=== PATIENT | female | born 1965 | race Caucasian/White ===

== ENCOUNTER 2018-07-13 13:37 | Inpatient (IN) | payer MEDICAID ==
[~2018-07-13] VITALS: Ht 157.5 cm; Wt 83.5 kg
[2018-07-13 13:45] VITALS: BP 148/89
--- NOTE | 2018-07-13 13:51 | NUR ---
AFTER TAKING EKG PER DR GAFFNEY, PT AMBULATES BACK TO THE LOBBY
--- NOTE | 2018-07-13 13:52 | NUR ---
53Y/F BIB DAUGHTER WITH C/O SOB, CHEST PALPITATION ON AMBULATION X 3 EPISODES, LAST ONE WAS 2 DAYS AGO SEND HOME FROM WORK. PT STATES SHE COULD WALK UP THE STAIRS YESTERDAY WITHOUT SOB AND HAD LEFT SIDE ARM WEAKNESS. PT IS AAOX4, VSS AT THIS TIME, BED DOWN LOCKED, BEDRAIL UP X 1, ER MD AWARE AND NOTIFIED OF PT STATUS. HX; DENIES RX; DENIES
--- NOTE | 2018-07-13 14:14 | NUR ---
pt ambulates w/ steady gait to bed 5 at this time
[2018-07-13 14:55] LABS: BASOPHILS % (AUTO) 0.4 % (0.0-2.0); EOSINOPHILS # (AUTO) 0.1 K/uL (0-0.4); EOSINOPHILS % (AUTO) 1.5 % (0.0-4.0); LYMPHOCYTES # (AUTO) 1.1 K/uL (2.5-16.5); LYMPHOCYTES % (AUTO) 27.4 % (20.5-51.1); MEAN CORPUSCULAR HEMOGLOBIN 24 pg (27-31); MEAN CORPUSCULAR HGB CONC 30 g/dL (33-37); MEAN CORPUSCULAR VOLUME 78.4 fL (80-94); MONOCYTES # (AUTO) 0.4 K/uL (0.8-1.0); MONOCYTES % (AUTO) 9.3 % (1.7-9.3); NEUTROPHILS # (AUTO) 2.5 K/uL (1.8-7.7); NEUTROPHILS % (AUTO) 61.4 % (42.2-75.2); PLATELET COUNT (AUTO) 197 K/uL (140-450); RED BLOOD CELL COUNT(AUTO) 2.62 MIL/uL (4.20-5.40); RED CELL DISTRIBUTION WIDTH 17.5 % (11.6-13.7); WHITE BLOOD COUNT (AUTO) 4.1 K/uL (4.8-10.8)
[2018-07-13 15:08] LABS: ANION GAP 11.6 (8-16); CARBON DIOXIDE 26.1 mmol/L (21-32); CREATININE 0.6 mg/dL (0.6-1.3); POTASSIUM 3.7 mmol/L (3.5-5.1)
[2018-07-13 15:14] LABS: TOTAL BILIRUBIN 0.2 mg/dL (0.0-1.0)
[2018-07-13 15:24] LABS: HEMOGLOBIN 6.2 g/dL (12.0-16.0)
[2018-07-13] MEDS ORDERED: NACL 0.9% 1,000 ML IV SCH (15:25)
--- NOTE | 2018-07-13 15:25 | NUR ---
CRITICAL LAB RESULT H/H 6.2/20.5 OBTAINED, DR. GAFFNEY MAKE AWARE.
[2018-07-13 15:27] LABS: HEMATOCRIT 20.5 % (36-48)
[2018-07-13 15:33] LABS: PROTHROMBIN TIME 9.7 secs (10.8-13.4)
[2018-07-13] MEDS ORDERED: MORPHINE SULFATE 2 MG/ML SYR IVP PRN (16:00)
[2018-07-13] MEDS ORDERED: ACETAMINOPHEN 325 MG TAB PO PRN (16:00)
[2018-07-13] MEDS ORDERED: HYDROcodone/APAP 5/325 MG 1 TAB TAB PO PRN (16:00)
[2018-07-13] MEDS ORDERED: ONDANSETRON 4 MG/2 ML VIAL IM/IVP PRN (16:00)
[2018-07-13] MEDS ORDERED: DOCUSATE SODIUM 100 MG GELCAP PO PRN (16:00)
[2018-07-13] MEDS ORDERED: ZOLPIDEM 5 MG TAB PO PRN (16:00)
--- NOTE | 2018-07-13 16:13 | NUR ---
NOT ABLE TO GET IV IN PATIENT AT THIS TIME
[2018-07-13 16:57] LABS: PHOSPHORUS 3.3 mg/dL (2.5-4.9); THYROID STIMULATING HORMONE 1.83 uIU/mL (0.34-3.74)
[2018-07-13] MEDS ORDERED: KETOROLAC 60 MG/2 ML VIAL IM ONE (17:10)
[2018-07-13] MEDS ORDERED: LORazepam 1 MG TAB PO ONE (17:10)
--- NOTE | 2018-07-13 17:30 | NUR ---
CONCENT OBTAINED FROM PATIENT FOR CENTRAL LINE INSERTION.
--- NOTE | 2018-07-13 17:50 | NUR ---
RESIDENT AT BEDSIDE DOING CENTRAL LINE INSERTION.
--- NOTE | 2018-07-13 18:30 | NUR ---
QUNTON CATHETER PLACED ON LEFT INTERJAGULAR VEIN, ONE OF LUMEN DOESN'T WORK PER RESIDENT.
[2018-07-13 18:51] LABS: APPEARANCE,URINE HAZY (CLEAR); BILIRUBIN,URINE NEGATIVE (NEGATIVE); BLOOD, URINE NEGATIVE (NEGATIVE); COLOR,URINE YELLOW (YELLOW); LEUKOCYTE ESTERASE ,URINE 1+ (NEGATIVE); NITRITE, URINE NEGATIVE (NEGATIVE); UGLUCOSE NEGATIVE (NEGATIVE)
[2018-07-13 18:55] LABS: BARBITURATE, URINE NEG. ng/ml (NEG <=200); BENZODIAZEPINE, URINE NEG. ng/mL (NEG <=200); CANNABINOID, URINE NEG. ng/mL (NEG <=50); COCAINE, URINE NEG. ng/mL (NEG <=300); OPIATE, URINE NEG. ng/mL (NEG <=2000); PHENCYCLIDINE SCREEN,URINE NEG. ng/mL (NEG <=25)
[2018-07-13 18:59] LABS: RBC,URINE 0-5 (RARE) /HPF (0-5); WBC,URINE 6-15 (FEW) /HPF (0-5)
[2018-07-13] MEDS ORDERED: HYDROmorphone 1 MG/ML AMP IVP SCH (19:00)
[2018-07-13] MEDS ORDERED: LORazepam 2 MG/ML VIAL IVP SCH (19:00)
--- NOTE | 2018-07-13 19:05 | NUR ---
PT ARRIVED ON UNIT VIA GURNEY WITH ER NURSE. PT ABLE TO AMBULATE FROM GURNEY INTO BED. PT ACCOMPANIED BY FAMILY. PT IS AA0X4. PT IS ON RA WITH RESPIRATIONS EVEN AND UNLABORED. L IJ TRIPLE LUMEN PLACED IN ER. DRESSING IS DRY INTACT AND LABELED. PT SKIN IS INTACT. PT HAS NO C/O PAIN AT THIS TIME. MRSA SWAB COLLECTED. VITALS TAKEN. FALL RISK PROTOCOL INITIATED. ORIENTED PT TO ROOM AND USE OF CALL LIGHT. BOARD UPDATED. CALL LIGHT IS WITHIN REACH. BED IS LOCKED, LOW POSITION WITH SIDE RAILS UP X2. WILL CONTINUE TO MONITOR.
--- NOTE | 2018-07-13 19:05 | NUR ---
Patient will be admitted to care of DR. CHIANG. Admited to TELE. Will go to room 121A. Belongings list completed. Report to MEY SHELDON AT BEDSIDE, PT IS IN STABLE CONDITION AT THIS TIME.
[2018-07-13 20:00] VITALS: BP 129/71
--- NOTE | 2018-07-13 20:12 | NUR ---
HEPARIN, ATIVAN AND DILAUDID NON ADMINISTERED D/T CENTRAL LINE ALREADY PLACED AND FLUSHED PRIOR TO PT ARRIVING ON UNIT. DR. MADDIE FINNEGAN.
--- NOTE | 2018-07-13 20:13 | NUR ---
PER DR PERKINS CANCEL HEPARIN LOCK FLUSH, ATIVAN IVP AND DILAUDID IVP PRIOR TO CENTRAL LINE PLACEMENT ORDER, PT ALREADY HAD CENTRAL LINE IN PLACE, PT'S RN PITO IS AWARE.
[2018-07-13] MEDS ORDERED: SODIUM FERRIC GLUCONATE 125 MG in NACL 0.9% 100 ML IV SCH ×4 (21:00)
[2018-07-13] MEDS ORDERED: cefTRIAXone 1,000 MG VIAL ONE (21:25)
[2018-07-13] MEDS: NACL 0.9% 1,000 ML IV SCH (21:26)
--- NOTE | 2018-07-13 21:29 | NUR ---
ORDERED IV ANTIBIOTIC STARTED. CONSENT FOR BLOOD TRANSFUSION OBTAINED. PT IS RESTING COMFORTABLY IN BED. NO S/SX OF DISTRESS. WILL CONTINUE TO MONITOR.
--- NOTE | 2018-07-13 22:12 | NUR ---
SCHEDULED FERRLECIT STARTED. PT IS SLEEPING COMFORTABLY IN BED. NO S/SX OF DISTRESS. WILL CONTINUE TO MONITOR.
[2018-07-13] MEDS ORDERED: INFLUENZA VIRUS VACCINE QUAD 0.5 ML SYR IMVAC PRN (23:15)
[2018-07-13 23:35] VITALS: BP 120/85
--- NOTE | 2018-07-13 23:50 | NUR ---
FIRST UNIT OF PRBC STARTED. PT TOLERATING WELL. NO S/SX OF DISTRESS. WILL CONTINUE TO MONITOR.
[2018-07-14] VITALS (9 sets, daily range): BP systolic 114–137; BP diastolic 60–94
--- NOTE | 2018-07-14 00:45 | NUR ---
PRBC STILL INFUSING. PT IS ASLEEP IN BED WITH NO SIGNS OR SYMPTOMS OF DISTRESS. WILL CONTINUE TO MONITOR.
--- NOTE | 2018-07-14 02:30 | NUR ---
PRBC UNIT FINISHED INFUSING. PT IS ALEEPING IN BED. VS STABLE. NO S/SX OF DISTRESS. WILL CONTINUE TO MONITOR PT.
--- NOTE | 2018-07-14 04:00 | NUR ---
PT VS WITHIN NORMAL LIMITS. ASSISTED PT UP TO BATHROOM AND BACK INTO BED. PT TOLERATED WELL. NO SIGNS OR SYMPTOMS OF DISTRESS. WILL CONTINUE TO MONITOR.
--- NOTE | 2018-07-14 07:20 | NUR ---
ENDORSED PT TO DAY SHIFT NURSE FOR CONTINUITY OF CARE. PT IN STABLE CONDITION.
--- NOTE | 2018-07-14 07:25 | NUR ---
RECEIVED PT FROM DRESS CUTTER NURSEPITO, PT IS ASLEEP LYING ON THE BED WITH SIDE RAILS UP AND CALL LIGHT WITHIN REACH, PT HAS A TRIPLE LUMEN IJ ON THE LEFT UPPER ARM WITH NS AT 60ML/HR, INFUSING HOOKED ON THE BLUE PORT, RESPIRATION EVEN AND NO SIGN OF DISTRESS NOTED. WILL CONTINUE TO MONITOR PT.
--- NOTE | 2018-07-14 08:00 | NUR ---
PT IS AWAKE AND VITAL SIGNS WAS TAKEN AND IS WITHIN NORMAL LIMITS, DR. REYNOSO CAME TO PT'S ROOM AND SPOKE TO PT REGARDING POC, PT VERBALIZED UNDERSTANDING. WILL MONITOR PT.
[2018-07-14 08:01] LABS: BASOPHILS % (AUTO) 1.1 % (0.0-2.0); EOSINOPHILS # (AUTO) 0.1 K/uL (0-0.4); EOSINOPHILS % (AUTO) 1.2 % (0.0-4.0); HEMATOCRIT 23.3 % (36-48); HEMOGLOBIN 7.3 g/dL (12.0-16.0); LYMPHOCYTES # (AUTO) 1.1 K/uL (2.5-16.5); LYMPHOCYTES % (AUTO) 23.9 % (20.5-51.1); MEAN CORPUSCULAR HEMOGLOBIN 25 pg (27-31); MEAN CORPUSCULAR HGB CONC 31 g/dL (33-37); MEAN CORPUSCULAR VOLUME 79.6 fL (80-94); MONOCYTES # (AUTO) 0.3 K/uL (0.8-1.0); MONOCYTES % (AUTO) 6.9 % (1.7-9.3); NEUTROPHILS # (AUTO) 3.1 K/uL (1.8-7.7); NEUTROPHILS % (AUTO) 66.9 % (42.2-75.2); PLATELET COUNT (AUTO) 185 K/uL (140-450); RED BLOOD CELL COUNT(AUTO) 2.92 MIL/uL (4.20-5.40); RED CELL DISTRIBUTION WIDTH 17.3 % (11.6-13.7); WHITE BLOOD COUNT (AUTO) 4.6 K/uL (4.8-10.8)
[2018-07-14 08:22] LABS: ANION GAP 15.1 (8-16); CREATININE 0.6 mg/dL (0.6-1.3); POTASSIUM 4.1 mmol/L (3.5-5.1)
[2018-07-14 08:26] LABS: PHOSPHORUS 3.4 mg/dL (2.5-4.9)
[2018-07-14] MEDS: NACL 0.9% 1,000 ML IV SCH (08:38)
--- NOTE | 2018-07-14 09:11 | NUR ---
PATIENT HAS BEEN SCREENED AND CATEGORIZED MODERATE NUTRITION RISK. PATIENT WILL BE SEEN WITHIN 3-5 DAYS OF ADMISSION. 07/16/18 07/18/[address]
[2018-07-14 09:50] LABS: CHOL/HDL RATIO 2.3 (1-4.5)
--- NOTE | 2018-07-14 12:15 | NUR ---
PT IS AWAKE AND HAVING HER LUNCH, V/S TAKEN AND IS WITHIN NORMAL LIMIT. PT VERBALIZED NOT HAVING A BOWEL MOVEMENT TODAY. WILL MONITOR PT.
--- NOTE | 2018-07-14 16:45 | NUR ---
PT IS AWAKE WITH SON ON THE BEDSIDE, V/S TAKEN AND IS WITHIN NORMAL LIMIT. PT DENIES PAIN AND NO SIGN OF DISTRESS NOTED.
--- NOTE | 2018-07-14 19:36 | NUR ---
ENDORSED PT TO WAREHOUSE SPECIALIST NURSE, YOVANY FOR CONTINUITY OF CARE, PT TIS STABLE AT THIS TIME.
--- NOTE | 2018-07-14 19:37 | NUR ---
RECEIVED REPORT FROM DAY SHIFT RN MACIEL FOR CONTINUITY OF CARE. PT IS A/OX4, ON ROOM AIR. PT AMBULATES WITH STEADY GAIT, AND SKIN IS PINK/WARM/DRY AND INTACT. PT IS ABLE TO MAKE NEEDS KNOWN, AND ABLE TO FOLLOW COMMANDS. LUNGS SOUNDS CLEAR, HR EVEN AND REGULAR. PT HAS A TRIPLE LUMEN LEFT IJ, ASYMPTOMATIC AND INTACT. PT DENIES ANY PAIN AT THIS TIME. VITAL SIGNS STABLE. NO SIGNS OF DISTRESS NOTED. PT POSITIONED FOR COMFORT. BED RAILS UP X2, BED IN LOWEST POSITION. CALL LIGHT WITHIN REACH, WILL CONTINUE TO MONITOR.
--- NOTE | 2018-07-14 21:05 | NUR ---
ADMINISTERED SCHEDULED MEDICATION, PT VERBALIZED UNDERSTANDING OF MED AND IS TOLERATING ADMINISTRATION WELL.
[2018-07-15] VITALS: BP 130/90
--- NOTE | 2018-07-15 | NUR ---
VITAL SIGNS STABLE. NO SIGNS OF DISTRESS NOTED. PT POSITIONED FOR COMFORT. BED RAILS UP X2, BED IN LOWEST POSITION. CALL LIGHT WITHIN REACH, WILL CONTINUE TO MONITOR.
[2018-07-15] MEDS: NACL 0.9% 1,000 ML IV SCH ×2 (01:18→17:58)
--- NOTE | 2018-07-15 03:00 | NUR ---
PT REPORTED CENTRAL LINE/DONNA CATH WAS LEAKING. CHECKED DONNA CATH AND DRESSING HAD COME OFF AND IT LOOKED LIKE SOME OF THE TUBING/CATHETER HAD COME OUT. I TOLD DR PERKINS ABOUT THIS AND HE LOOKED AT IT. HE SAID TO PUT NEW DRESSING ON BUT DON'T TRY TO PUSH CATHETER IN. USED STERILE TECHNIQUE TO CLEAN AND DRESS DONNA CATH, THEN CHECKED IF BLOOD COULD BE DRAWN, AND IT COULDN'T. STOPPED IV FLUIDS.
[2018-07-15 04:00] VITALS: BP 126/83
--- NOTE | 2018-07-15 06:22 | NUR ---
PT STABLE, NO SIGNS OF DISTRESS NOTED.
[2018-07-15 06:43] LABS: ANION GAP 13.3 (8-16); CARBON DIOXIDE 23.7 mmol/L (21-32); CREATININE 0.6 mg/dL (0.6-1.3)
[2018-07-15 07:00] LABS: BASOPHILS % (AUTO) 0.4 % (0.0-2.0); EOSINOPHILS # (AUTO) 0.1 K/uL (0-0.4); EOSINOPHILS % (AUTO) 1.9 % (0.0-4.0); HEMATOCRIT 25.1 % (36-48); HEMOGLOBIN 7.7 g/dL (12.0-16.0); LYMPHOCYTES # (AUTO) 1.5 K/uL (2.5-16.5); LYMPHOCYTES % (AUTO) 27.6 % (20.5-51.1); MEAN CORPUSCULAR HEMOGLOBIN 24 pg (27-31); MEAN CORPUSCULAR HGB CONC 31 g/dL (33-37); MONOCYTES # (AUTO) 0.4 K/uL (0.8-1.0); MONOCYTES % (AUTO) 7.7 % (1.7-9.3); NEUTROPHILS # (AUTO) 3.4 K/uL (1.8-7.7); NEUTROPHILS % (AUTO) 62.4 % (42.2-75.2); PLATELET COUNT (AUTO) 210 K/uL (140-450); RED BLOOD CELL COUNT(AUTO) 3.17 MIL/uL (4.20-5.40); RED CELL DISTRIBUTION WIDTH 17.5 % (11.6-13.7); WHITE BLOOD COUNT (AUTO) 5.4 K/uL (4.8-10.8)
--- NOTE | 2018-07-15 07:30 | NUR ---
PT REPORT OBTAINED FORM NIGHT NURSE. PT IS AWAKE AND ALERT X 4, NO S/S OF DISTRESS, PAIN, OR SOB. A DONNA CATHETER IS NOTED PARTIALLY PULLED OUT FROM PT'S L SIDE NECK, REINFORCED WITH A CLEAR DRESSING, THE CATHETER GOT PARTIALLY PULLED OUT LAST NIGHT. THE PT DOES NOT HAVE ANY OTHER PERIPHERAL IV SITES. SKIN IS INTACT. PT ON ROOM AIR. FALL PRECAUTIONS IN PLACE. CALL LIGHT WITHIN REACH. WILL CONTINUE TO MONITOR.
--- NOTE | 2018-07-15 07:34 | NUR ---
ENDORSED PT TO DAY SHIFT MEY PILLAI FOR CONTINUITY OF CARE. PT IN STABLE CONDITION.
[2018-07-15 08:00] VITALS: BP 131/86
[2018-07-15] MEDS ORDERED: DOCUSATE SODIUM 100 MG GELCAP PO SCH (08:00)
[2018-07-15] MEDS ORDERED: FERROUS SULFATE 325 MG TABEC PO SCH (08:00)
[2018-07-15] MEDS: ASCORBIC ACID 500 MG TAB PO SCH (09:01)
[2018-07-15 12:00] VITALS: BP 148/86
--- NOTE | 2018-07-15 12:00 | NUR ---
L IJ CATHETER DC'D PER MD ORDER.
--- NOTE | 2018-07-15 12:38 | NUR ---
FOUR ATTEMPTS TO START A PERIPHERAL IV BY TWO NURSES UNSUCCESSFUL. WILL CALL ER TO SEE IF THEY CAN COME TO TRY TO INSERT IV. Addendum: 07/15/18 at 1315 by Pamela Vazquez RN DR MOE AWARE THAT IV COULD NOT BE INSERTED. Addendum: 07/15/18 at 1429 by Pamela Vazquez RN PER DR MOE, NO NEED TO INSERT NEW IV
[2018-07-15 16:00] VITALS: BP 127/89
--- NOTE | 2018-07-15 18:00 | NUR ---
STOOL OBTAINED AND TAKEN TO LAB FOR HEMOCCULT TEST.
[2018-07-15] MEDS: FERROUS SULFATE 325 MG TABEC PO SCH (18:11)
--- NOTE | 2018-07-15 19:30 | NUR ---
PT REPORT GIVEN AT BEDSIDE TO NIGHT NURSE. PT ENDORSED IN STABLE CONDITION.
--- NOTE | 2018-07-15 19:35 | NUR ---
RECEIVED REPORT FROM DAY SHIFT RN IVON FOR CONTINUITY OF CARE. PT IS A/OX4, ON ROOM AIR. PT AMBULATES WITH STEADY GAIT, AND SKIN IS PINK/WARM/DRY AND INTACT. PT IS ABLE TO MAKE NEEDS KNOWN, AND ABLE TO FOLLOW COMMANDS. LUNGS SOUNDS CLEAR, HR EVEN AND REGULAR. NO IV ACCESS. PT DENIES ANY PAIN AT THIS TIME. VITAL SIGNS STABLE. NO SIGNS OF DISTRESS NOTED. PT POSITIONED FOR COMFORT. BED RAILS UP X2, BED IN LOWEST POSITION. CALL LIGHT WITHIN REACH, WILL CONTINUE TO MONITOR.
[2018-07-15 20:00] VITALS: BP 134/61
--- NOTE | 2018-07-15 22:06 | NUR ---
PT COMPLAINED ABOUT NEIGHBOR'S LIGHT BEING TOO BRIGHT IN THE BED NEXT TO HERS. TALKED TO PT NEXT TO HER AND SHE AGREED TO TURN OFF THE OVERHEAD LIGHT AND TURN ON THE MIRROR LIGHT BY THE BATHROOM.
[2018-07-16] VITALS: BP 107/72
--- NOTE | 2018-07-16 03:00 | NUR ---
PT RESTING, NO SIGNS OF DISTRESS NOTED. WILL CONTINUE TO MONITOR.
[2018-07-16 04:00] VITALS: BP 126/73
--- NOTE | 2018-07-16 06:16 | NUR ---
NO SIGNS OF DISTRESS NOTED. PT POSITIONED FOR COMFORT. BED RAILS UP X2, BED IN LOWEST POSITION. CALL LIGHT WITHIN REACH, WILL CONTINUE TO MONITOR.
--- NOTE | 2018-07-16 07:30 | NUR ---
ENDORSED PT TO DAY SHIFT MEY ST FOR CONTINUITY OF CARE. PT IN STABLE CONDITION.
--- NOTE | 2018-07-16 07:35 | NUR ---
RECEIVED PT FROM SAND CUTTER OPERATOR NURSEYOVANY, PT IS ASLEEP LYING ON THE BED WITH SIDE RAILS UP AND CALL LIGHT WITHIN REACH, RESPIRATION EVEN AND NO SIGN OF DISTRESS NOTED. WILL CONTINUE TO MONITOR PT.
[2018-07-16 08:00] VITALS: BP 148/89
[2018-07-16] MEDS: FERROUS SULFATE 325 MG TABEC PO SCH (08:16)
[2018-07-16] MEDS: ASCORBIC ACID 500 MG TAB PO SCH (08:18)
--- NOTE | 2018-07-16 08:24 | NUR ---
PT IS AWAKE AND ALERT AND JUST FINISHED HER BREAKFAST, ORAL MEDICATIONS GIVEN AND PT TOLERATED IT, PT DENIES PAIN AND NO SIGN OF DISTRESS NOTED. WILL CONTINUE TO MONITOR PT
[2018-07-16] MEDS ORDERED: [UNRECOGNIZED DRUG - CODE] PO ×2 (10:09→11:23)
[2018-07-16] MEDS ORDERED: ASCO500T45 PO ×2 (10:09→11:23)
[2018-07-16] MEDS: NACL 0.9% 1,000 ML IV SCH (10:38)
--- NOTE | 2018-07-16 11:43 | NUR ---
PT WAS GIVEN FLU VACCINE NOW AND HEART MONITOR WAS REMOVED. PT IS STABLE AT THIS TIME.
[2018-07-16 12:00] VITALS: BP 135/89
--- NOTE | 2018-07-16 12:30 | NUR ---
DISCHARGED PT WITH FAMILY, DISCHARGED TEACHINGS AND INSTRUCTIONS GIVEN AND PT VERBALIZED UNDERSTANDING, BAND REMOVED. PT IS STABLE AT THIS TIME.
== END 2018-07-16 12:30 | disposition home or self-care (01) | DRG 469 ==
LOC: MED 13:37 → MTU 15:58
PROVIDERS: ADMIT General Practice; ATTEND General Practice
PROC: 02HV33Z Insertion of Infusion Device into Superior Vena Cava, Percutaneous Approach (ICD-10-PCS; principal; 2018-07-13)
PROC: 30233N1 Transfusion of Nonautologous Red Blood Cells into Peripheral Vein, Percutaneous Approach (ICD-10-PCS; 2018-07-13)
PROC: B548ZZA Ultrasonography of Superior Vena Cava, Guidance (ICD-10-PCS; 2018-07-13)
DX: N17.0 Acute kidney failure with tubular necrosis (principal); E87.8 Other disorders of electrolyte and fluid balance, not elsewhere classified; E44.0 Moderate protein-calorie malnutrition; G62.9 Polyneuropathy, unspecified; D50.9 Iron deficiency anemia, unspecified; F15.90 Other stimulant use, unspecified, uncomplicated; E66.9 Obesity, unspecified; F17.210 Nicotine dependence, cigarettes, uncomplicated; N39.0 Urinary tract infection, site not specified; Z68.33 Body mass index [BMI] 33.0-33.9, adult; Z71.3 Dietary counseling and surveillance; Z90.49 Acquired absence of other specified parts of digestive tract; Z83.3 Family history of diabetes mellitus; Z80.42 Family history of malignant neoplasm of prostate; Z80.0 Family history of malignant neoplasm of digestive organs; Z71.51 Drug abuse counseling and surveillance of drug abuser
CPT/HCPCS: 36415; 71045; 80048; 80053; 80305; 81001; 82271; 82272; 82607; 82728; 82746; 83036; 83540; 83690; 83735; 83880; 84100; 84134; 84443; 84484; 85025; 85045; 85610; 85730; 86886; 86900; 86901; 86920; 87081; 87086; 90658; 93970; 96372; 99285; J0696; J1642; J1885; J2916; J7030; J7060; P9016; Q0092